=== PATIENT | female | born 1985 | race African-American/Black ===

== ENCOUNTER 2018-02-20 22:35 | Emergency (ER) | payer SELFPAY ==
[2018-02-20 22:36] VITALS: BP 134/84; PULSE 75; RESP 18; TEMP 97.9; O2SAT 99
[2018-02-20 23:20] LABS: BILIRUBIN, URINE NEG (NEG); BLOOD, URINE NEG (NEG); GLUCOSE,URINE NEG (NEG); KETONE, URINE NEG (NEG); MUCUS URINE FEW /lpf (OCC); NITRITE,URINE NEG (NEG); PH, URINE 6.5 (5.0-8.5); SQUAMOUS EPITHELIAL CELL URINE 4 /hpf (0-5); URINE COLOR YELLOW (YELLW/STRAW); URINE LEUKOCYTE ESTERASE SMALL (NEG)
[2018-02-20] MEDS ORDERED: FLUCONAZOLE 100 MG TAB PO ONE (23:30)
[2018-02-20] MEDS ORDERED: DIFL150T PO (23:33)
--- NOTE | 2018-02-20 23:34 | PD ---
HPI Chief Complaint: Complaint Time Seen by Provider: 22:44 Travel History International Travel<30 days: No Contact w/Intl Traveler<30days: No Traveled to known affect area: No History of Present Illness HPI The patient is 32 years old. She describes burning and dysuria for the last few days. No fever. No abnormal vaginal bleeding. Last menstruation was about 4 weeks ago. No nausea vomiting. Severity mild to moderate. No modifying factor. She reports similar symptoms in the past diagnosed as vaginal candidiasis. [facility] Past Medical History Medical History: Denies Significant Hx Diminished Hearing: No Immunizations Current: Yes ?: Not LMP: 01/17/18 Past Surgical History Surgical History: No Previous Surgery Social History Alcohol Use: Yes Tobacco Use: No Substance Use: No Allergies-Medications (Allergen,Severity, Reaction): Coded Allergies: No Known Allergies (Unverified , 02/20/18) Review of Systems Except as stated in HPI: all other systems reviewed are Neg General / Constitutional: No: Fever Physical Exam Narrative GENERAL: Well-nourished well-developed 32-year-old female no acute distress Vital Signs Date Time Temp Pulse Resp B/P (MAP) Pulse Ox O2 Delivery O2 Flow Rate FiO2 02/20/18 22:36 97.9 75 18 134/84 (101) 99 SKIN: Warm and dry. HEAD: Atraumatic. Normocephalic. EYES: Pupils equal and round. No scleral icterus. No injection or drainage. ENT: No nasal bleeding or discharge. Mucous membranes pink and moist. NECK: Trachea midline. No JVD. CARDIOVASCULAR: Regular rate and rhythm. RESPIRATORY: No accessory muscle use. Clear to auscultation. Breath sounds equal bilaterally. GASTROINTESTINAL: Abdomen soft, non-tender, nondistended. Hepatic and splenic margins not palpable. MUSCULOSKELETAL: Extremities without clubbing, cyanosis, or edema. No obvious deformities. NEUROLOGICAL: Awake and alert. No obvious cranial nerve deficits. Motor grossly within normal limits. Five out of 5 muscle strength in the arms and legs. Normal speech. PSYCHIATRIC: Appropriate mood and affect; insight and judgment normal. Data Data Last Documented VS Vital Signs Date Time Temp Pulse Resp B/P (MAP) Pulse Ox O2 Delivery O2 Flow Rate FiO2 02/20/18 22:36 97.9 75 18 134/84 (101) 99 Orders Orders Ed Urine Pregnancytest Poc (02/20/18 22:50) Urinalysis - C+S If Indicated (02/20/18 22:50) Fluconazole (Diflucan) (02/20/18 23:30) Ed Discharge Order (02/20/18 23:29) Labs Laboratory Tests Test 02/20/18 22:58 Urine Color YELLOW Urine Turbidity CLEAR Urine pH 6.5 Urine Specific [place] 1.025 Urine Protein TRACE mg/dL Urine Glucose (UA) NEG mg/dL Urine Ketones NEG mg/dL Urine Occult Blood NEG Urine Nitrite NEG Urine Bilirubin NEG Urine Urobilinogen 2.0 MG/DL Urine Leukocyte Esterase SMALL Urine RBC 2 /hpf Urine WBC 3 /hpf Urine Squamous Epithelial Cells 4 /hpf Urine Mucus FEW /lpf Urine Yeast (Budding) FEW Microscopic Urinalysis Comment CULT NOT INDICATED MDM Medical Decision Making Medical Screen Exam Complete: Yes Emergency Medical Condition: Yes Differential Diagnosis IUP, UTI, ectopic , ov torsion, appendicitis, TOA, cervicitis, BV, Trichomoniasis, ov cyst, hernia, mittelschmerz, pain from menstruation Narrative Course Urinalysis shows no UTI however there are yeast Urine is negative Diflucan here and a prescription for 1 week if no improvement Diagnosis Primary Impression: Candidiasis of vagina Referrals: Primary Care Physician call for appointment Med/Other Pt SpecificInfo: Prescription(s) given Scripts Fluconazole (Diflucan) 150 Mg Tab 150 MG PO ONCE for Infection, #1 TAB 0 Refills Prov: Moose Bowles MD 02/20/18 Disposition: 01 DISCHARGE HOME Condition: Stable Moose Bowles MD February 20, 2018 23:34
== END 2018-02-20 23:45 | disposition home or self-care (01) ==
LOC: NEPD 22:35
DX: B37.3 Candidiasis of vulva and vagina (principal)
CPT/HCPCS: 81001; 84703; 99283

== ENCOUNTER 2018-02-23 09:07 | Emergency (ER) | payer SELFPAY ==
[~2018-02-23] VITALS: Ht 170.2 cm; Wt 85.0 kg
[~2018-02-23 09:07] MED LIST: DIFL150T PO
[2018-02-23 09:10] VITALS: BP 118/79; PULSE 73; RESP 16; TEMP 98.2; O2SAT 98
--- NOTE | 2018-02-23 10:23 | PD ---
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 Patient reports that she was seen in the emergency room a few days ago and was diagnosed with a yeast infection, reports that she was given 2 days of Diflucan and has completed her full course of treatment, reports that she continues to have vaginal pruritus as well as a whitish vaginal discharge. Patient reports that symptoms in the past were concerning for a yeast infection, patient took her medications as prescribed with no relief of symptoms. Patient does not have a homemaker companion, she does go to the health clinic yearly for std check ups. Patient reports that she did have chlamydia about 10 years ago. Patient with no fever or chills, patient denies any abdominal pain, denies any nausea or vomiting. Patient denies dysuria, urinary urgency or frequency. Patient with no other complaints at this time. PFSH Past Medical History Medical History: Denies Significant Hx Diminished Hearing: No Immunizations Current: Yes Past Surgical History Surgical History: No Previous Surgery Social History Alcohol Use: Yes Tobacco Use: No Substance Use: No Allergies-Medications (Allergen,Severity, Reaction): Coded Allergies: No Known Allergies (Unverified , 02/20/18) Reported Meds & Prescriptions Reported Meds & Active Scripts Active Diflucan (Fluconazole) 150 Mg Tab 150 Mg PO ONCE Review of Systems General / Constitutional: No: Fever Eyes: No: Visual changes HENT: No: Headaches Cardiovascular: No: Chest Pain or Discomfort Respiratory: No: Shortness of Breath Gastrointestinal: No: Nausea, Vomiting, Abdominal Pain Genitourinary: Positive: Discharge, Other (Vaginal pruritus), No: Dysuria Musculoskeletal: No: Pain Skin: No Rash Neurologic: No: Weakness Psychiatric: No: Depression Endocrine: No: Polydipsia Hematologic/Lymphatic: No: Easy Bruising Physical Exam Narrative GENERAL: NAD SKIN: Focused skin assessment warm/dry. HEAD: Atraumatic. Normocephalic. EYES: Pupils equal and round. No scleral icterus. No injection or drainage. ENT: No nasal bleeding or discharge. Mucous membranes pink and moist. NECK: Trachea midline. No JVD. CARDIOVASCULAR: Regular rate and rhythm. No murmur appreciated. RESPIRATORY: No accessory muscle use. Clear to auscultation. Breath sounds equal bilaterally. GASTROINTESTINAL: Abdomen soft, non-tender, nondistended. Hepatic and splenic margins not palpable. : Exam performed with RN at bedside, no CMT or adnexal tenderness, no vaginal discharge MUSCULOSKELETAL: No obvious deformities. No clubbing. No cyanosis. No edema. NEUROLOGICAL: Awake and alert. No obvious cranial nerve deficits. Motor grossly within normal limits. Normal speech. PSYCHIATRIC: Appropriate mood and affect; insight and judgment normal. Data Data Last Documented VS Vital Signs Date Time Temp Pulse Resp B/P (MAP) Pulse Ox O2 Delivery O2 Flow Rate FiO2 02/23/18 09:10 98.2 73 16 118/79 (92) 98 Orders Orders Gc And Chlamydia Pcr (02/23/18 10:15) Wet Prep Profile (02/23/18 10:15) Urinalysis - C+S If Indicated (02/23/18 10:15) Ed Urine Pregnancytest Poc (02/23/18 10:15) Urine Culture (02/23/18 10:20) Ceftriaxone Inj (Rocephin Inj) (02/23/18 12:00) Lidocaine 1% Inj (50 Ml) (Xylocaine 1% I (02/23/18 12:00) Ceftriaxone Inj (Rocephin Inj) (02/23/18 12:00) Labs Laboratory Tests Test 02/23/18 10:20 02/23/18 11:06 Urine Color YELLOW Urine Turbidity HAZY Urine pH 7.0 Urine Specific [place] 1.019 Urine Protein 30 mg/dL Urine Glucose (UA) NEG mg/dL Urine Ketones NEG mg/dL Urine Occult Blood LARGE Urine Nitrite NEG Urine Bilirubin NEG Urine Urobilinogen LESS THAN 2.0 MG/DL Urine Leukocyte Esterase LARGE Urine RBC 10 /hpf Urine WBC 66 /hpf Urine Squamous Epithelial Cells 27 /hpf Urine Bacteria FEW /hpf Urine Mucus FEW /lpf Microscopic Urinalysis Comment CULTURE INDICATED Clue Cells (Wet Prep) NONE SEEN Vaginal Trichomonas (Wet Prep) NONE SEEN Vaginal Yeast (Wet Prep) NONE SEEN MDM Medical Decision Making Medical Screen Exam Complete: Yes Emergency Medical Condition: Yes Medical Record Reviewed: Yes Interpretation(s) Vital Signs Date Time Temp Pulse Resp B/P (MAP) Pulse Ox O2 Delivery O2 Flow Rate FiO2 02/23/18 09:10 98.2 73 16 118/79 (86) 98 Differential Diagnosis Bacterial vaginosis, yeast infection, cervicitis, UTI Narrative Course Patient is a 32-year-old female who presents the emergency room with complaints of vaginal pruritus which has been ongoing for the past few days. She was recently seen in the emergency room for similar symptoms and was diagnosed with a yeast infection, patient reports no resolution of symptoms after taking Diflucan. Patient reports past history of chlamydia infection in the past, discussed with patient that since she has not received a pelvic exam, will perform pelvic exam today to rule out infection. Patient is agreeable with plan of care. Laboratory Tests Test 02/23/18 10:20 02/23/18 11:06 Urine Color YELLOW (YELLW/STRAW) Urine Turbidity HAZY (CLEAR) Urine pH 7.0 (5.0-8.5) Urine Specific [place] 1.019 (1.002-1.035) Urine Protein 30 mg/dL (NEG-TRACE) Urine Glucose (UA) NEG mg/dL (NEG) Urine Ketones NEG mg/dL (NEG) Urine Occult Blood LARGE (NEG) Urine Nitrite NEG (NEG) Urine Bilirubin NEG (NEG) Urine Urobilinogen LESS THAN 2.0 MG/DL (LESS Urine Leukocyte Esterase LARGE (NEG) Urine RBC 10 /hpf (0-3) Urine WBC 66 /hpf (0-5) Urine Squamous Epithelial Cells 27 /hpf (0-5) Urine Bacteria FEW /hpf (NONE) Urine Mucus FEW /lpf (OCC) Microscopic Urinalysis Comment CULTURE INDICATED Clue Cells (Wet Prep) NONE SEEN (NONE) Vaginal Trichomonas (Wet Prep) NONE SEEN (NONE) Vaginal Yeast (Wet Prep) NONE SEEN (NONE) UA is positive for large blood, large leuk esterase, 66 white blood cells, 10 red blood cells, few bacteria, wet prep negative, none seen for trichomonas as well as yeast, GC pending. Patient was given a dose of IM Rocephin for treatment of UTI, she will follow- up with all cultures from today. Patient will follow-up with the health clinic for further STD testing. She will return to the emergency room as needed. Diagnosis Primary Impression: UTI (urinary tract infection) Qualified Codes: N30.01 - Acute cystitis with hematuria Patient Instructions: General Instructions Departure Forms: Tests/Procedures Additional Instructions: Please follow-up with all cultures from today, if cultures are positive, all sexual parties will need to be treated. Please follow-up with the [facility] for full STD panel Please follow up with your primary care doctor in 2-3 days Return to the ER if symptoms worsen or progress Return to the ER as needed Med/Other Pt SpecificInfo: Prescription(s) given Scripts Nitrofurantoin Monohydrate Macrocrystals (Macrobid) 100 Mg Capsule 100 MG PO BID for Infection for 10 Days, #20 CAP 0 Refills Prov: Peyton Aldridge DO 02/23/18 Disposition: 01 DISCHARGE HOME Condition: Stable Peyton Aldridge DO February 23, 2018 10:23
[2018-02-23 11:05] LABS: BACTERIA, URINE FEW /hpf; BILIRUBIN, URINE NEG (NEG); BLOOD, URINE LARGE (NEG); GLUCOSE,URINE NEG (NEG); KETONE, URINE NEG (NEG); MUCUS URINE FEW /lpf (OCC); NITRITE,URINE NEG (NEG); SQUAMOUS EPITHELIAL CELL URINE 27 /hpf (0-5); URINE COLOR YELLOW (YELLW/STRAW); URINE LEUKOCYTE ESTERASE LARGE (NEG)
[2018-02-23] MEDS ORDERED: LIDOCAINE HCL 1% 50 ML VIAL IM ONE (12:00)
[2018-02-23] MEDS ORDERED: cefTRIAXone INJ 1,000 MG in SODIUM CHLORIDE 0.9% INJ 100 ML IV ONE (12:00)
[2018-02-23] MEDS ORDERED: MACR100C2 PO (12:08)
[2018-02-23] MEDS ORDERED: LIDOCAINE HCL 1% PF 30 ML VIAL ONE (12:09)
== END 2018-02-23 12:34 | disposition home or self-care (01) ==
LOC: NEPD 09:07
DX: N30.01 Acute cystitis with hematuria (principal)
CPT/HCPCS: 81001; 84703; 87086; 87210; 87491; 87591; 96372; 99284; J0696